=== PATIENT | male | born 1960 | race Caucasian/White ===

== ENCOUNTER 2021-05-20 11:35 | Outpatient (RCR) | payer MEDICARE ==
[~2021-05-20 11:35] MED LIST: ASPIRIN EC81 MG PO; ATORVASTATIN CA20 MG PO; FUROSEMIDE40 MG PO; LOSARTAN-HCTZ1 EAC1 PO; METOPROLOL SUCC25 MG PO; POTASSIUM CHLO20 ME1 PO
== END 2021-06-18 ==
LOC: ST 11:35
PROVIDERS: ATTEND Family Medicine
DX: H91.3 Deaf nonspeaking, not elsewhere classified (principal)
CPT/HCPCS: 92523

== ENCOUNTER → 2021-05-21 | Day surgery (SDC) | payer MEDICARE ==
[2021-05-21 11:20] VITALS: BP 121/78
== END | disposition home or self-care (01) ==
LOC: OR 08:51
PROVIDERS: ATTEND Internal Medicine Gastroenterology
DX: D12.3 Benign neoplasm of transverse colon (principal); K57.30 Diverticulosis of large intestine without perforation or abscess without bleeding; K64.8 Other hemorrhoids; E66.01 Morbid (severe) obesity due to excess calories; I10 Essential (primary) hypertension; I25.2 Old myocardial infarction; Z68.42 Body mass index [BMI] 45.0-49.9, adult
CPT/HCPCS: 45385; 93005; U0002; 45378

== ENCOUNTER 2022-11-29 14:18 | Emergency (ER) | payer MEDICARE ==
[~2022-11-29] VITALS: Ht 177.8 cm; Wt 131.5 kg
[2022-11-29 15:24] LABS: BASOPHILS % 0.4 % (0.0-1.0); EOSINOPHILS # (AUTO) 0.3 (0.0-0.4); EOSINOPHILS % 4.1 % (0.0-6.0); HEMATOCRIT 40.3 % (38.2-49.6); HEMOGLOBIN 12.5 g/dL (14.0-18.0); LYMPHOCYTES # (AUTO) 1.7 (1.0-3.2); LYMPHOCYTES % 21.8 % (18.0-39.1); MEAN CORPUSCULAR VOLUME 90.2 fL (81-99); MONOCYTES # (AUTO) 0.8 (0.2-0.8); MONOCYTES % 9.9 % (4.4-11.3); NEUTROPHILS # (AUTO) 4.9 (2.1-6.9); NEUTROPHILS % 63.3 % (38.7-80.0); PLATELET COUNT 238 x10e3/uL (140-360); RED BLOOD COUNT 4.47 x10e6/uL (4.3-5.7); RED CELL DISTRIBUTION WIDTH 15.6 % (11.7-14.4)
[2022-11-29 15:31] LABS: INR 0.92; PROTHROMBIN TIME 12.9 seconds (11.9-14.5)
[2022-11-29 15:32] LABS: PARTIAL THROMBOPLASTIN TIME 29.8 seconds (23.8-35.5)
[2022-11-29 15:40] LABS: ALBUMIN 3.4 g/dL (3.5-5.0); ALBUMIN/GLOBULIN RATIO 1.1 (0.8-2.0); ANION GAP 14.4 mmol/L (8-16); CALCIUM 8.3 mg/dL (8.4-10.2); CREATININE, SERUM 0.85 mg/dL (0.72-1.25); MAGNESIUM 1.9 MG/DL (1.3-2.1); POTASSIUM 3.4 mmol/L (3.5-5.1)
[2022-11-29 15:47] LABS: CREATINE KINASE MB 3.7 ng/mL (0-5.0)
[2022-11-29] MEDS ORDERED: METHOCARBAMOL500 MG PO (15:57)
== END 2022-11-29 16:15 | disposition home or self-care (01) ==
LOC: ER 14:34
DX: M79.10 Myalgia, unspecified site (principal); M25.512 Pain in left shoulder; I25.10 Atherosclerotic heart disease of native coronary artery without angina pectoris; Z95.1 Presence of aortocoronary bypass graft; E78.5 Hyperlipidemia, unspecified; G89.29 Other chronic pain
CPT/HCPCS: 36415; 71045; 80053; 82550; 82553; 83735; 83880; 84484; 85025; 85610; 85730; 93005; 99284